=== PATIENT | male | born 1995 | race Caucasian/White ===

== ENCOUNTER 2018-07-24 13:57 | Emergency (ER) | payer MEDICAID ==
[~2018-07-24] VITALS: Ht 175.3 cm; Wt 80.7 kg
[2018-07-24 14:44] VITALS: BP 120/83
== END 2018-07-24 15:30 | disposition home or self-care (01) ==
LOC: ER 13:57
DX: T16.2XXA Foreign body in left ear, initial encounter (principal); X58.XXXA Exposure to other specified factors, initial encounter; Y93.89 Activity, other specified; Y99.8 Other external cause status; Y92.89 Other specified places as the place of occurrence of the external cause